=== PATIENT | male | born 1965 | race African-American/Black ===

== ENCOUNTER 2017-03-29 14:54 | Emergency (ER) | payer BC ==
[~2017-03-29] VITALS: Ht 175.3 cm; Wt 111.0 kg
[2017-03-29 15:32] LABS: URINE BLOOD DIPSTICK MODERATE (NEGATIVE); URINE CLARITY CLEAR; URINE COLOR YELLOW; URINE GLUCOSE - DIPSTICK NEGATIVE (NEGATIVE); URINE KETONE TRACE mg/dL (NEGATIVE); URINE LEUK ESTERASE NEGATIVE (NEGATIVE); URINE NITRITE - DIPSTICK NEGATIVE (Negative); URINE PH 5.5 (4.5-8.0); URINE PROTEIN - DIPSTICK 100 mg/dL (NEG-TRACE); URINE SPECIFIC GRAVITY >=1.030
[2017-03-29 16:01] LABS: HEMATOCRIT 37.2 % (39.0-50.0); HEMOGLOBIN 11.7 g/dl (14.0-18.0); IMMATURE GRANULOCYTES 0.6 % (0.0-1.0); MEAN CELL VOLUME 77.5 fL CALC (80.0-100.0); MEAN CORPUSCULAR HGB 24.4 pG CALC (26.0-32.0); MEAN CORPUSCULAR HGB CONC 31.5 g/L CALC (32.0-36.0); NEUT# 10.06 thou/uL (1.82-7.42); RED BLOOD COUNT 4.8 mill/uL (4.70-6.10); RED CELL DISTRI WIDTH 14.3 % (11.5-15.5)
[2017-03-29 16:34] LABS: URINE BILIRUBIN - DIPSTICK SMALL (NEGATIVE)
[2017-03-29 16:35] LABS: URINE SQUAMOUS EPITHELIAL CELL FEW EPI/hpf (0-FEW)
[2017-03-29 16:37] LABS: ALBUMIN 3.8 g/dL (3.2-5.0); BILIRUBIN, TOTAL 1.5 mg/dL (0.0-1.4); CALCIUM 8.9 mg/dL (8.4-10.2); CREATININE 1.7 mg/dL (0.7-1.3); POTASSIUM 4.2 mmol/l (3.5-5.1); TOTAL PROTEIN 8.3 g/dL (6.3-8.2)
[2017-03-29 19:24] VITALS: BP 190/87
== END 2017-03-29 19:19 | DRG 392 ==
LOC: ED 14:54
PROVIDERS: Family Medicine
DX: K57.20 Diverticulitis of large intestine with perforation and abscess without bleeding (principal); R50.9 Fever, unspecified; R30.0 Dysuria; R10.31 Right lower quadrant pain; R10.32 Left lower quadrant pain
CPT/HCPCS: Q9967

== ENCOUNTER 2018-04-14 08:43 | Day surgery (SDC) | payer BC ==
[~2018-04-14 08:43] MED LIST: AMLODIPINE10 MG PO; FUROSEMIDE40 MG PO; K-TAB20 MEQ PO; METO50TA52 PO
[2018-04-14 11:25] VITALS: BP 115/79
== END 2018-04-14 11:33 | disposition home or self-care (01) | DRG 951 ==
LOC: ENDO 08:43
PROVIDERS: ATTEND Surgery
PROC: 0DJD8ZZ Inspection of Lower Intestinal Tract, Via Natural or Artificial Opening Endoscopic (ICD-10-PCS; principal; 2018-04-14)
DX: Z12.11 Encounter for screening for malignant neoplasm of colon (principal); I10 Essential (primary) hypertension

== ENCOUNTER 2021-07-16 14:48 | Observation (INO) | payer BC ==
[~2021-07-16] VITALS: Ht 175.3 cm; Wt 105.0 kg
[~2021-07-16 14:48] MED LIST changes: +FOLIC ACID1 MG PO; +METOPROLOL100 M1 PO
--- NOTE | 2021-07-16 15:00 | NUR ---
PT ESCORTED VIA EMS STRETCHER TO ROOM 15
[2021-07-16 15:40] LABS: HEMATOCRIT 33.6 % (39.0-50.0); IMMATURE GRANULOCYTES 0.5 % (0.0-5.0); MEAN CORPUSCULAR HGB 25.5 pG CALC (26.0-32.0); MEAN CORPUSCULAR HGB CONC 32.7 g/dL CAL (32.0-36.0); NEUT# 5.5 thou/uL (1.82-7.42); RED BLOOD COUNT 4.31 mill/uL (4.70-6.10); RED CELL DISTRI WIDTH 13.5 % (11.5-15.5)
[2021-07-16 15:51] LABS: ALBUMIN 3.6 g/dL (3.2-5.0); ALKALINE PHOSPHATASE 90 u/l (38-126); ANION GAP 12 (6-22 (CALC)); BILIRUBIN, TOTAL 0.9 mg/dL (0.0-1.4); BUN 27 mg/dL (9-20); BUN/CREATININE RATIO 13 (12-20 (CALC)); CARBON DIOXIDE 24 mmol/l (22-30); CHLORIDE 97 mmol/l (95-108); GFR 35 ML/MIN (>=60 (CALC)); GFR FOR AFR.AMER. 42 ML/MIN (>=60 (CALC)); POTASSIUM 4.2 mmol/l (3.5-5.1); SGOT/AST 27 u/l (17-59); TOTAL PROTEIN 8.5 g/dL (6.3-8.2)
[2021-07-16 16:03] LABS: SODIUM 129 mmol/l (137-146)
--- NOTE | 2021-07-16 17:58 | NUR ---
PATIENT ASKED FOR FOOD, BUT BGL WAS STILL ELEVATED. EXPLAINED TO PATIENT THAT HE COULD NOT HAVE FOOD UNTIL BGL IS LOWER. LACTIC 2.8 CRITICAL RECEIVED FROM LAB.
--- NOTE | 2021-07-16 19:18 | NUR ---
Patient urinated 1100 total output.
[2021-07-16 19:54] LABS: URINE BILIRUBIN - DIPSTICK NEGATIVE (NEGATIVE); URINE BLOOD DIPSTICK SMALL (NEGATIVE); URINE COLOR YELLOW; URINE GLUCOSE - DIPSTICK >=1000 mg/dL (NEGATIVE); URINE KETONE NEGATIVE (NEGATIVE); URINE LEUK ESTERASE NEGATIVE (NEGATIVE); URINE PROTEIN - DIPSTICK 100 mg/dL (NEG-TRACE); URINE UROBILINOGEN - DIPSTICK 0.2 E.U./dL (0.2)
[2021-07-16 19:58] LABS: URINE NITRITE - DIPSTICK NEGATIVE (Negative)
--- NOTE | 2021-07-16 20:00 | NUR ---
RESTING COMFORTABLY AWAITING DISPO.
[2021-07-16 20:08] LABS: URINE RBC 0-2 RBC/hpf (0-5); URINE WBC 0-2 WBC/hpf (0-5)
--- NOTE | 2021-07-17 02:45 | NUR ---
VOIDED 1000 CC
--- NOTE | 2021-07-17 04:30 | NUR ---
WATCHING TV VOIDED ADDITIONAL 500 CC
[2021-07-17 05:49] LABS: HEMATOCRIT 33.2 % (39.0-50.0); HEMOGLOBIN 10.8 g/dl (14.0-18.0); MEAN CELL VOLUME 79.4 fL CALC (80.0-100.0); MEAN CORPUSCULAR HGB 25.8 pG CALC (26.0-32.0); MEAN CORPUSCULAR HGB CONC 32.5 g/dL CAL (32.0-36.0); PLATELET COUNT 193 thou/uL (130-400); RED BLOOD COUNT 4.18 mill/uL (4.70-6.10); RED CELL DISTRI WIDTH 13.6 % (11.5-15.5)
--- NOTE | 2021-07-17 05:49 | NUR ---
APPEARS COMFORTABLE WATCHING TV.
[2021-07-17 06:03] LABS: CREATININE 1.9 mg/dL (0.7-1.3); MAGNESIUM 1.8 mg/dL (1.6-2.3); POTASSIUM 4.6 mmol/l (3.5-5.1)
[2021-07-17] MEDS ORDERED: ATORVASTATIN CA10 MG PO (07:20)
--- NOTE | 2021-07-17 07:25 | NUR ---
REPORT GIVEN TO MED/SURG NURSE
--- NOTE | 2021-07-17 07:32 | NUR ---
REPORT REC FROM ADRIANO EDMONDS
--- NOTE | 2021-07-17 07:40 | NUR ---
PATIENT TAKEN TO MED/SURG
--- NOTE | 2021-07-17 07:45 | NUR ---
PT ARRIVED VIA WC ACCOMPANIED BY ADRIANO EDMONDS. PT A&O X4. NO DISTRESS NOTED. PT DENIES ANY SOB OR COUGH. CLEAR/DIMINISHED BREATH SOUNDS UPON AUSCULTATION. ACTIVE BOWEL SOUNDS X4 QUADRANTS. LAST BM REPORTED YESTERDAY 07/16. 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 #18G RFA EMS SITE HEALTHY AND PATENT; IVF REINITIATED AT THIS TIME. GLUCOSE MONITOR THIS MORNING SHOWING RESULTS OF 216; PT EDUCATED ON ELEVATED BLOOD GLUCOSE LEVEL, HGA1C, AND SLIDING SCALE WITH OVERAGE DURING HOSPITAL STAY; PT AGREEABLE AND RECEPTIVE TO INFORMATION. PT REPORTS SEEING DR EPPERSON HIS PCP STATES HE RAN OUT OF DIABETIC MEDICATION FOR SOME "WHILE" NOW. ASSESSMENT COMPLETED. NON SKID SOCKS APPLIED AT THIS TIME. DISCUSSED POC. ORIENTED PT TO ROOM. CALL LIGHT WITHIN REACH.
[2021-07-17 08:00] VITALS: BP 141/93
--- NOTE | 2021-07-17 09:22 | NUR ---
pt given scheduled BP medications along with tylenol for low grade temp of 100.1. no other needs reported at this time. temp to be reassessed. call light within reach.
[2021-07-17 10:59] VITALS: BP 123/67
--- NOTE | 2021-07-17 11:52 | NUR ---
PT SITTING ON THE SIDE OF THE BED. PT EDUCATED ON LEVEMIR PT RECEPTIVE TO EDUCATION; 15U OF SCHEDULED LEVEMIR GIVEN. NO OTHER NEEDS AT THIS TIME. CALL LIGHT WITHIN REACH.
[2021-07-17 15:21] VITALS: BP 141/89
[2021-07-17 19:00] VITALS: BP 129/75
--- NOTE | 2021-07-17 19:00 | NUR ---
RECIEVED REPORT FROM GREY BUSH
--- NOTE | 2021-07-17 20:10 | NUR ---
PT RESTING IN SEMI FOWLERS POSITION. PT IS A/OX3. ASSESSMENT. RESPIRATIONS ARE EVEN AND UNLABORED ON ROOM AIR. LUNG SOUNDS ARE CLEAR. HEART RHYTHM NORMAL WITH TELE IN PLACE. BOWEL SOUNDS ACTIVE. #18G RFA INFUSING WITH IVF PER ORDER, SITE REMAINS HEALTHY AND PATENT. SKIN INTACT. PULSES STRONG. 1+ EDEMA NOTED TO BLE. PT DENIES OF ANY PAINS OR DISCOMFORTS. GLUCOSE RESULTING IN 400, COVERAGE ADMINISTERED PER ORDER. ALL [employer] PRECAUTIONS ARE IN PLACE WITH CALL LIGHT IN REACH.AIR/CONTACT PRECAUTIONS. WILL CONTINUE TO MONITOR.
[2021-07-17 20:30] VITALS: BP 169/78
--- NOTE | 2021-07-17 21:27 | NUR ---
INFROMED BY GREY HUBBARD OF ORDERS TO DC TELE. TELE TO BE REMOVED, ER INFORMED
[2021-07-18] VITALS: BP 136/85
--- NOTE | 2021-07-18 00:37 | NUR ---
PT SLEEPING IN SEMI FOWLERS POSITION. REPSIRATIONS ARE EVEN AND UNLABORED ON ROOM AIR. #18G RF AINFUSING WITH IVF PER ORDER. NO SIGNS OF ANY PAINS OR DISCOMFORTS AT THSI TIME. ALL SAFTEY PRECAUTIONS ARE IN PLACE WITH CALL LIGHT IN REACH. WILL CONTINUE TO MONITOR
[2021-07-18 04:00] VITALS: BP 145/77
--- NOTE | 2021-07-18 04:00 | NUR ---
PT RESTING IN SEMI FOWLERS POSITION. RESPIRATIONS ARE EVEN AND UNLABORED ON ROOM AIR. #18G RFA INFUSING WITH IVF PER ORDER, SITE REMAINS HEALTHY AND PATENT. PT DENIES OF ANY PAINS OR DISCOMFORTS. ALL SAFTEY PRECAUTIONS ARE IN PLACE WITH CALL LIGHT IN REACH. FRESH WATER PROVIDED. WILL CONTINUE TO MONITOR
[2021-07-18 05:09] LABS: HEMATOCRIT 38.3 % (39.0-50.0); HEMOGLOBIN 12.4 g/dl (14.0-18.0); IMMATURE GRANULOCYTES 0.5 % (0.0-5.0); MEAN CORPUSCULAR HGB 25.6 pG CALC (26.0-32.0); MEAN CORPUSCULAR HGB CONC 32.4 g/dL CAL (32.0-36.0); NEUT# 2.64 thou/uL (1.82-7.42); RED BLOOD COUNT 4.85 mill/uL (4.70-6.10); RED CELL DISTRI WIDTH 13.6 % (11.5-15.5)
[2021-07-18 05:34] LABS: ALBUMIN 3.4 g/dL (3.2-5.0); C-REACTIVE PROTEIN 3.2 mg/dL (0-0.9); CREATININE 1.9 mg/dL (0.7-1.3); POTASSIUM 4.1 mmol/l (3.5-5.1); TOTAL PROTEIN 8.2 g/dL (6.3-8.2)
[2021-07-18 05:36] LABS: BILIRUBIN, TOTAL 0.5 mg/dL (0.0-1.4)
[2021-07-18 08:00] VITALS: BP 139/77
--- NOTE | 2021-07-18 10:12 | NUR ---
ALERT AND ORIENTED PATIENT X3.RESPIRATORY DISTRESS IS NOT OBSERVED AT THE TIME OF THIS NOTE. EDUCATED AND GUIDES ON MEDICATIONS, NURSING PLAN AND CLINICAL PLAN FOR TODAY, PATIENT REFER TO UNDERSTAND. MEDICATIONS ARE Administered according to mar. stable patient at the moment does not repor pain. preventive rouds every hour are carried out for fall prevention and patient satisfaction.
[2021-07-18 12:00] VITALS: BP 150/72
[2021-07-18] MEDS ORDERED: GLIPIZIDE ER10 M1 PO (12:23)
[2021-07-18] MEDS ORDERED: LEVEMIR100 UNIT SC (12:27)
== END 2021-07-18 14:03 | disposition home or self-care (01) | DRG 637 ==
LOC: ED 14:48 → ED-I 20:20 → ED 20:41 → MS2 20:42 → ED-I 20:42 → MS2 07-17 06:40
PROVIDERS: Emergency Medicine; Nurse Practitioner; ADMIT Internal Medicine; ATTEND Internal Medicine
DX: E11.65 Type 2 diabetes mellitus with hyperglycemia (principal); U07.1 COVID-19; E87.1 Hypo-osmolality and hyponatremia; N17.9 Acute kidney failure, unspecified; E11.22 Type 2 diabetes mellitus with diabetic chronic kidney disease; I12.9 Hypertensive chronic kidney disease with stage 1 through stage 4 chronic kidney disease, or unspecified chronic kidney disease; N18.9 Chronic kidney disease, unspecified; T38.3X6A Underdosing of insulin and oral hypoglycemic [antidiabetic] drugs, initial encounter; Z91.128 Patient's intentional underdosing of medication regimen for other reason
CPT/HCPCS: G0378; J1650

== ENCOUNTER 2022-10-11 20:08 | Emergency (ER) | payer BC ==
[~2022-10-11] VITALS: Ht 175.3 cm; Wt 115.0 kg
[~2022-10-11 20:08] MED LIST changes: +ATORVASTATIN CA10 MG PO; +GLIPIZIDE ER10 M1 PO; +LEVEMIR100 UNIT SC
[2022-10-11 20:38] LABS: BASO% 0.3 % (0-3); EOS% 2.5 % (0-8); HEMOGLOBIN 11.9 g/dl (14.0-18.0); IMMATURE GRANULOCYTES 0.6 % (0.0-5.0); LYMPH% 13.7 % (15-41); MEAN CORPUSCULAR HGB 23.8 pG CALC (26.0-32.0); MEAN CORPUSCULAR HGB CONC 30.5 g/dL CAL (32.0-36.0); NEUT# 7.89 thou/uL (1.82-7.42); NEUT% 75.9 % (42-76); RED CELL DISTRI WIDTH 14.3 % (11.5-15.5)
[2022-10-11 20:52] LABS: CREATININE 2.8 mg/dL (0.7-1.3)
[2022-10-11 20:58] LABS: POTASSIUM 5.8 mmol/l (3.5-5.1)
[2022-10-11] MEDS ORDERED: PREDNISONE50 MG PO (21:10)
[2022-10-11] MEDS ORDERED: MITIGARE0.6 MG PO (21:10)
[2022-10-11 21:41] VITALS: BP 154/78
== END 2022-10-11 21:56 | disposition home or self-care (01) | DRG 554 ==
LOC: ED 20:08
PROVIDERS: Family Medicine
DX: M10.071 Idiopathic gout, right ankle and foot (principal); N17.9 Acute kidney failure, unspecified; E11.22 Type 2 diabetes mellitus with diabetic chronic kidney disease; I12.9 Hypertensive chronic kidney disease with stage 1 through stage 4 chronic kidney disease, or unspecified chronic kidney disease; N18.9 Chronic kidney disease, unspecified; Z79.4 Long term (current) use of insulin

== ENCOUNTER 2023-01-03 12:17 | Emergency (ER) | payer BC ==
[~2023-01-03] VITALS: Ht 175.3 cm; Wt 115.8 kg
[~2023-01-03 12:17] MED LIST changes: +MITIGARE0.6 MG PO; +PREDNISONE50 MG PO
[2023-01-03 12:26] VITALS: BP 160/105
[2023-01-03 12:30] VITALS: BP 141/101
[2023-01-03] MEDS ORDERED: LISINOPRIL10 MG PO (12:30)
[2023-01-03 13:01] VITALS: BP 120/73
[2023-01-03] MEDS ORDERED: PREDNISONE50 MG PO (13:13)
[2023-01-03] MEDS ORDERED: MITIGARE0.6 MG PO (13:13)
[2023-01-03 13:30] VITALS: BP 140/100
== END 2023-01-03 13:32 | disposition home or self-care (01) | DRG 554 ==
LOC: ED 12:17
DX: M10.071 Idiopathic gout, right ankle and foot (principal); I10 Essential (primary) hypertension; E11.9 Type 2 diabetes mellitus without complications; E66.9 Obesity, unspecified; Z79.4 Long term (current) use of insulin

== ENCOUNTER 2023-01-25 09:02 | Emergency (ER) | payer BC ==
[~2023-01-25] VITALS: Ht 175.3 cm; Wt 106.0 kg
[~2023-01-25 09:02] MED LIST changes: +LISINOPRIL10 MG PO
[2023-01-25 09:07] VITALS: BP 138/90
[2023-01-25] MEDS ORDERED: PREDNISONE50 MG PO (09:15)
[2023-01-25] MEDS ORDERED: MITIGARE0.6 MG PO (09:15)
[2023-01-25 09:30] VITALS: BP 126/81
[2023-01-25 09:54] VITALS: BP 126/81
== END 2023-01-25 10:00 | disposition home or self-care (01) | DRG 554 ==
LOC: ED 09:02
DX: M10.071 Idiopathic gout, right ankle and foot (principal); I10 Essential (primary) hypertension; E11.9 Type 2 diabetes mellitus without complications; E66.9 Obesity, unspecified; Z79.4 Long term (current) use of insulin

== ENCOUNTER 2023-07-26 14:02 | Emergency (ER) | payer OTHER ==
[~2023-07-26] VITALS: Ht 175.3 cm; Wt 111.0 kg
[2023-07-26 14:52] VITALS: BP 164/104
[2023-07-26 15:00] VITALS: BP 169/112
[2023-07-26] MEDS ORDERED: COLCHICINE0.6 M2 PO (15:05)
[2023-07-26 15:10] VITALS: BP 169/112
== END 2023-07-26 15:20 | disposition home or self-care (01) ==
LOC: ED 14:02
DX: M10.071 Idiopathic gout, right ankle and foot (principal); I10 Essential (primary) hypertension; E11.9 Type 2 diabetes mellitus without complications; Z79.4 Long term (current) use of insulin